=== PATIENT | female | born 1985 | race Caucasian/White ===

== ENCOUNTER → 2019-07-02 | Outpatient (CLI) | payer OTHER | END | disposition home or self-care (01) | LOC: RAD 16:58 | PROVIDERS: ATTEND Physician Assistant Surgical | DX: S82.52XA Displaced fracture of medial malleolus of left tibia, initial encounter for closed fracture (principal); S82.62XA Displaced fracture of lateral malleolus of left fibula, initial encounter for closed fracture; X58.XXXA Exposure to other specified factors, initial encounter; Y93.89 Activity, other specified; Y92.89 Other specified places as the place of occurrence of the external cause; Y99.8 Other external cause status ==

== ENCOUNTER 2019-07-06 10:35 | Day surgery (SDC) | payer OTHER ==
[~2019-07-06] VITALS: Ht 167.6 cm; Wt 68.2 kg
[2019-07-06] MEDS ORDERED: OXYC-307 PO (11:16)
[2019-07-06] MEDS ORDERED: IBUP-1222 PO (11:16)
[2019-07-06] MEDS ORDERED: LACTATED RINGERS 1,000 ML IV SCH (11:16)
[2019-07-06] MEDS ORDERED: CHLORHEXIDINE 15 ML UDC ONE (11:20)
[2019-07-06] MEDS ORDERED: CHLORHEXIDINE 15 ML UDC MM ONE (11:30)
[2019-07-06 11:42] VITALS: BP 111/71
[2019-07-06 11:43] LABS: HCG UR SG 1.016 (1.003-1.030)
[2019-07-06] MEDS ORDERED: BUPIVACAINE/PF-EPI 0.5% 1:200K ONE (12:44)
[2019-07-06] MEDS ORDERED: MIDAZOLAM 1 MG/ML, 2ML ONE (13:34)
[2019-07-06] MEDS ORDERED: FENTANYL PF 100 MCG/2ML ONE ×4 (13:34→16:08)
[2019-07-06] MEDS ORDERED: PROPOFOL 10 MG/ML, 20ML ONE (13:35)
[2019-07-06] MEDS ORDERED: ONDANSETRON 2MG/ML, 2ML ONE ×2 (13:35→13:45)
[2019-07-06] MEDS ORDERED: SUCCINYLCHOLINE 20 MG/ML, 10ML ONE (13:35)
[2019-07-06] MEDS ORDERED: CEFAZOLIN 1,000 MG ONE (13:35)
[2019-07-06] MEDS ORDERED: DEXAMETHASONE 4 MG/ML, 1ML ONE (13:35)
[2019-07-06] MEDS ORDERED: DIPHENHYDRAMINE 50 MG/ML, 1ML ONE ×2 (13:35→14:14)
[2019-07-06] MEDS ORDERED: KETOROLAC 30 MG/1 ML ONE (13:45)
[2019-07-06] MEDS ORDERED: LIDOCAINE-MPF 2% ,5ML ONE (13:45)
[2019-07-06] MEDS ORDERED: BUPIVACAINE/PF 0.5% ONE (13:56)
[2019-07-06] MEDS ORDERED: hydrALAzine 20 MG/ML, 1ML IV PRN (14:30)
[2019-07-06] MEDS ORDERED: PROMETHAZINE 25 MG/ML, 1ML IVPush PRN (14:30)
[2019-07-06] MEDS ORDERED: ONDANSETRON 2MG/ML, 2ML IVPush PRN (14:30)
[2019-07-06] MEDS ORDERED: OXYcodone 5 MG/5 ML ORAL.SOL UDC PO PRN (14:30)
[2019-07-06] MEDS ORDERED: MEPERIDINE/PF 25MG/0.5ML IVPush PRN (14:30)
[2019-07-06] MEDS ORDERED: ACETAMINOPHEN 325 MG TABLET PO PRN (14:30)
[2019-07-06] MEDS ORDERED: EPHEDRINE 50 MG/ML, 1ML IVPush PRN (14:30)
[2019-07-06] MEDS ORDERED: LABETALOL 5MG/ML, 20ML IV PRN (14:30)
[2019-07-06] MEDS ORDERED: OXYcodone 5 MG/5 ML ORAL.SOL UDC ONE (15:40)
[2019-07-06] MEDS ORDERED: HYDROmorphone 1 MG/ML, 1ML INJ ONE ×2 (15:44→16:08)
[2019-07-06] MEDS: FENTANYL PF 100 MCG/2ML IV PRN ×4 (15:46→16:28)
[2019-07-06] MEDS: HYDROmorphone 1 MG/ML, 1ML INJ IVPush PRN ×3 (15:51→16:20)
[2019-07-06] MEDS ORDERED: ACETAMINOPHEN 650 MG/20.3 ML UDC ONE (16:08)
[2019-07-06] MEDS ORDERED: morphine SULFATE 10 MG/ML, 1ML ONE (17:09)
[2019-07-06] MEDS ORDERED: morphine SULFATE 10 MG/ML, 1ML IVPush PRN (17:30)
== END 2019-07-06 18:15 | disposition home or self-care (01) ==
LOC: OUT 10:35
PROVIDERS: ATTEND Orthopaedic Surgery
DX: S82.842A Displaced bimalleolar fracture of left lower leg, initial encounter for closed fracture (principal); V80.010A Animal-rider injured by fall from or being thrown from horse in noncollision accident, initial encounter; X50.1XXA Overexertion from prolonged static or awkward postures, initial encounter; Y93.52 Activity, horseback riding; Y92.89 Other specified places as the place of occurrence of the external cause; Y99.8 Other external cause status
CPT/HCPCS: 27828; 64445; 64447; 73610; 81025; C1713; C1762; J0330; J0690; J1100; J1170; J1200; J1885; J2250; J2270; J2405; J2704; J3010; J7120; 76000